=== PATIENT | female | born 1970 | race Caucasian/White ===

== ENCOUNTER → 2016-10-09 | Day surgery (SDC) | payer BC ==
[~2016-10-09] MED LIST: BIRTH CONTROL PILL PO; EFFEXOR PO; EFFEXOR-XR150 MG PO; KETOPROFEN PO; LIPITOR20 MG PO; NAPROXEN PO; STOOL SOFTENER240 MG PO; VICODIN ES 7.51 EAC1 PO
--- NOTE | ~2016-10-09 | OR ---
Unit #: [id number] #: [id number] Patient: DINO HESTER [id number] [address] [place], [place] [address] [id number] MR#: [id number] NAME: DINO HESTER ROOM: Date of Procedure: 10/09/2016 Admission Date: 10/09/2016 Surgeon: Ministerio Vee M.D. : 1970 Attending Physician: Ministerio Vee M.D. OPERATIVE REPORT JOB NOTE: CC: [facility]. PREOPERATIVE DIAGNOSES 1. Back pain. 2. Lumbar facet disease. 3. Buttock pain. POSTOPERATIVE DIAGNOSES 1. Back pain. 2. Lumbar facet disease. 3. Buttock pain. PROCEDURE PERFORMED Diagnostic and therapeutic right L3-L4, L4-L5, and L5-S1 facet injections with intravenous sedation and fluoroscopic guidance for needle localization. INDICATIONS FOR PROCEDURE The patient is a 46-year-old female, who presented initially with left-sided low back, buttock, and hip pain. This began abruptly in 09/2015 and failed to settle with conservative treatment. Workup demonstrated spondylolisthesis at the L4-L5 level and some facet disease at L3-4, L4-5, and L5-S1. Initial impression was that it might be a sacroiliac joint dysfunction. Dr. Ledezma requested diagnostic and therapeutic sacroiliac joint injections. Two were done, she did very well initially and had a return of the symptoms within just several days. On examination, there was a question as to whether may likely be a piriformis issue rather than the sacroiliac joint. The patient had clinical impression. Two piriformis injections were done at the office. The first which gave her very good improved for 5 days and the second which gave her resolution of the symptoms for about 2 weeks. She still is able to walk without a cane, which showing some improvement over a month at this point. There is question as to whether or not the facet arthropathy may be an etiology for the trigger of this problem. A trial of diagnostic and therapeutic injection is today. The patient was instructed to pay close attention how she feels today following the injection and then longer term with the effect of the local anesthetic. We will be seeing her back in the office in 3 or 4 weeks time. She will follow up with Dr. Gilman. DESCRIPTION OF PROCEDURE The patient was placed in a prone position. Standard monitors were applied. 2 mg of Versed were given for sedation and anxiolysis, which Unit #: [id number] #: [id number] Patient: HESTER,DINO MORRISSEY were adequate. Vital signs remained stable. Sterile prep and drape then of the lumbar area was performed. Fluoroscopy was then used to identify the location of the right L3-L4, L4-L5, and L5-S1 facet joints. The skin overlying this was localized with 1% lidocaine. At each of these levels, a 22-gauge Quincke point spinal needle was advanced with biplanar fluoroscopic guidance to bring the needle tip within the edge of the respective facet joints. After confirming proper positioning, at each level a dose of 1 mL of a mixture of 80 mg of Depo-Medrol and 2 mL of 0.25% bupivacaine were deposited, 0.5 mL within the joint and 0.5 mL just outside the joint. The needles were flushed and removed. The patient tolerated the entire procedure otherwise well and was discharged to the recovery room in stable condition. Dictated by... Areli Lucero/haleigh TD: 10/10/2016 04:58 JOB #: [id number] CC: Antelmo Gilman M.D. OPERATIVE REPORT Page 1 of 1 X Ministerio Vee MD X PROCEDURE OPERATIVE NOTE
== END | disposition home or self-care (01) ==
LOC: CCSC 08:24
DX: M43.16 Spondylolisthesis, lumbar region (principal); M47.896 Other spondylosis, lumbar region
CPT/HCPCS: J1040; J2250